=== PATIENT | male | born 1995 | race Caucasian/White ===

== ENCOUNTER 2024-02-06 12:13 | Emergency (ER) | payer SELFPAY | END 2024-02-06 12:52 | disposition home or self-care (01) | LOC: BURERS 12:13 | DX: L02.415 Cutaneous abscess of right lower limb (principal); L03.115 Cellulitis of right lower limb; F17.290 Nicotine dependence, other tobacco product, uncomplicated; Z55.6 Problems related to health literacy | CPT/HCPCS: 10060 ==